=== PATIENT | female | born 1955 | race Caucasian/White ===

== ENCOUNTER → 2021-05-17 | Day surgery (SDC) | payer MEDICARE, MEDICAID ==
[~2021-05-17] VITALS: Ht 167.6 cm; Wt 106.0 kg
[~2021-05-17] MED LIST: ACETAMINOPHEN 325 MG TABLET PO PRN; ASPI81TA45 PO; ATOR20TA37 PO; BUPIVACAINE/PF 0.25% ONE; BUPIVACAINE/PF 0.5% ONE; CHLORHEXIDINE 15 ML UDC PO ONE; CHOL10003 PO; CYCL10TA2 PO; DIPH25CA61 PO; DULA4.5P PO; EMPA10TA PO; EPINEPHRINE 1 MG/ML, 1ML ONE; FENTANYL PF 100 MCG/2ML IV PRN; FENTANYL PF 100 MCG/2ML ONE; HYDROcodone/APAP 7.5-325MG/15ML UDC PO PRN; HYDROmorphone 2 MG/ML, 1ML IVPush PRN; LACTATED RINGERS 1,000 ML IV SCH; MEPERIDINE/PF 25MG/0.5ML IVPush PRN; MIDAZOLAM 1 MG/ML, 2ML ONE; ONDANSETRON 2MG/ML, 2ML IVPush PRN; OXYcodone 5 MG/5 ML ORAL.SOL UDC PO PRN; PANT40TA6 PO; PROMETHAZINE 25 MG/ML, 1ML IVPush PRN; ZOLP5TAB6 PO
[2021-05-17 11:07] VITALS: BP 142/82
[2021-05-17 11:28] LABS: ALBUMIN 3.6 g/dL (3.4-5.0); ANION GAP 4 mmol/L (5-15); CHLORIDE 107 mmol/L (98-107)
[2021-05-17 11:33] LABS: ALANINE AMINOTRANSFERASE 66 U/L (12-78); ALKALINE PHOSPHATASE 157 U/L (45-117); BILIRUBIN,TOTAL 0.4 mg/dL (0.2-1.0); CREATININE 0.82 mg/dL (0.55-1.02); TOTAL PROTEIN 8.3 g/dL (6.4-8.2)
== END | disposition home or self-care (01) ==
LOC: OR 10:12
PROVIDERS: ATTEND Surgery
DX: Z01.812 Encounter for preprocedural laboratory examination (principal); K80.10 Calculus of gallbladder with chronic cholecystitis without obstruction; Z20.822 Contact with and (suspected) exposure to COVID-19
CPT/HCPCS: 80053; 82962; 87635; J0171; J2250; J3010; J7120